=== PATIENT | male | born 1965 | race Asian ===

== ENCOUNTER 2022-07-13 04:26 | Inpatient (IN) | payer MEDICARE, OTHER ==
[~2022-07-13] VITALS: Ht 167.6 cm; Wt 70.0 kg
[2022-07-13] VITALS (15 sets, daily range): BP systolic 55–164; BP diastolic 26–91
[~2022-07-13 04:26] MED LIST: AMLO-258 PO; ATOR10TA PO; GLYB-145 PO
[2022-07-13 05:25] LABS: BASOPHILS % (AUTO) 3.2 % (0.0-2.0); HEMATOCRIT 38.9 % (41-53); HEMOGLOBIN 12.2 g/dL (13.5-17.5); LYMPHOCYTES % (AUTO) 52.7 % (22.0-44.0); MEAN CORPUSCULAR HEMOGLOBIN 35.2 pg (26.0-34.0); MEAN CORPUSCULAR HGB CONC 31.4 G/dL (31.0-37.0); MEAN CORPUSCULAR VOLUME 112 fL (80-100); MONOCYTES # (AUTO) 0.3 K/uL (0.1-1.0); MONOCYTES % (AUTO) 5.4 % (2.0-9.0); NEUTROPHILS % (AUTO) 35.7 % (40.0-70.0); PLATELET COUNT (AUTO) 95 K/uL (150-450); RED BLOOD CELL COUNT(AUTO) 3.46 MIL/uL (4.50-5.90); RED CELL DISTRIBUTION WIDTH 15.6 % (11.5-14.5)
[2022-07-13 05:35] LABS: INR 1.2 (0.9-1.1); PROTHROMBIN TIME 12.9 SEC (9.4-11.6)
[2022-07-13 05:49] LABS: ALANINE AMINOTRANSFERASE 14 U/L (12-78); ALBUMIN 3.1 g/dL (3.4-5.0); ALKALINE PHOSPHATASE 158 U/L (46-116); ANION GAP 17 mmol/L (8-16); ASPARTATE AMINOTRANSFERASE 20 U/L (15-37); BILIRUBIN,TOTAL 1.3 mg/dL (0.1-1.0); CARBON DIOXIDE 23 mmol/L (22-29); CHLORIDE 103 mmol/L (98-107); CREATINE KINASE, TOTAL ONLY 90 U/L (39-308); CREATININE 8.28 mg/dL (0.60-1.30); GLUCOSE,RANDOM 148 mg/dL (70-110); POTASSIUM 5.8 mmol/L (3.5-5.1); SODIUM SERUM 143 mmol/L (136-145); TOTAL PROTEIN, SERUM 7.8 g/dL (6.4-8.2); UREA NITROGEN, BLOOD 63 mg/dL (7-18)
[2022-07-13 05:55] LABS: B-TYPE NATRIURETIC PEPTIDE > 5000 pg/mL (0-100); GLOMERULAR FILTR. RATE CALC 7 mL/min (>60)
[2022-07-13 05:57] LABS: CALCIUM, TOTAL 18.7 mg/dL (8.8-10.5)
[2022-07-13] MEDS ORDERED: PROPOFOL 1000 MG/ISO-OSM 100 ML ONE (06:00)
[2022-07-13] MEDS ORDERED: PROPOFOL 1000 MG/ISO-OSM 100 ML IV PRN ×2 (06:15→13:00)
[2022-07-13] MEDS ORDERED: DOPamine 400MG/D5W[STANDARD] 250 ML IV PRN ×2 (06:45→13:00)
[2022-07-13 07:28] LABS: COVID AG,FIA SOURCE NASOPHARYNGEAL
[2022-07-13 07:47] LABS: CALCIUM, TOTAL 10.5 mg/dL (8.8-10.5); POTASSIUM 5.6 mmol/L (3.5-5.1)
[2022-07-13 07:49] LABS: ABG BASE EXCESS -6.5 mmol/L (-2.0-3.0); ABG CARBOXYHEMOGLOBIN 0.5 % (0.0-1.5); ABG HCO3 19.1 mmol/L (22.0-26.0); ABG OXYGEN CONTENT 16.9 mL/dL (15.0-23.0); ABG OXYGEN SATURATION 95.3 % (95.0-98.0); ABG OXYHEMOGLOBIN 94.8 % (94.0-100.0); ABG PCO2 47 mmHg (35-45); ABG PH 7.261 (7.35-7.450); ABG TOTAL HEMOGLOBIN 12.6 G/dL (12.0-18.0); PO2, ARTERIAL BG 93.7 mmHg (84.0-92.0); SOURCE, BLOOD GAS ARTERIAL; TEMPERATURE, FAHRENHEIT, BG 96.5 FAHREN (96.0-98.6)
[2022-07-13 07:50] LABS: ABG A-A DIFF O2 575.9 mmHg (10-20.0); O2 DEVICE,BLOOD GAS VENTILATOR (ROOM AIR); SITE, BLOOD GAS LFT RADIAL; SPONTANEOUS VT, BG 420 ml; VT, ABG 375 ml
[2022-07-13 07:53] LABS: ALBUMIN 3.4 g/dL (3.4-5.0); BILIRUBIN,TOTAL 1.7 mg/dL (0.1-1.0); TOTAL PROTEIN, SERUM 8.7 g/dL (6.4-8.2)
[2022-07-13] MEDS ORDERED: ACETAMINOPHEN 325 MG TABLET PO PRN (10:00)
[2022-07-13] MEDS ORDERED: LIDOCAINE/PF 2% 5 ML VIAL IM ONE (12:00)
[2022-07-13] MEDS ORDERED: HEPARIN SODIUM,PORCINE 1,000 UNITS/ML 10 ML VIAL IVP ONE (12:00)
[2022-07-13 13:01] LABS: ABG CARBOXYHEMOGLOBIN 0.9 % (0.0-1.5); ABG HCO3 23.7 mmol/L (22.0-26.0); ABG METHEMOGLOBIN 0.3 % (0.0-1.5); ABG OXYGEN CONTENT 16.4 mL/dL (15.0-23.0); ABG OXYGEN SATURATION 98.3 % (95.0-98.0); ABG OXYHEMOGLOBIN 97.1 % (94.0-100.0); ABG PCO2 42 mmHg (35-45); ABG PH 7.375 (7.35-7.450); ABG TOTAL HEMOGLOBIN 11.8 G/dL (12.0-18.0); PO2, ARTERIAL BG 140.2 mmHg (84.0-92.0); SOURCE, BLOOD GAS ARTERIAL; TEMPERATURE, FAHRENHEIT, BG 98.6 FAHREN (96.0-98.6)
[2022-07-13 13:02] LABS: O2 DEVICE,BLOOD GAS VENTILATOR (ROOM AIR); SITE, BLOOD GAS LFT RADIAL; SPONTANEOUS VT, BG 580 ml; VT, ABG 400 ml
[2022-07-13 13:03] LABS: PEEP,BG 5 cm H2O
[2022-07-13] MEDS ORDERED: VANCOMYCIN 1GM/WATER(PEG/NADA) 200 ML IV PRN (13:15)
[2022-07-13] MEDS ORDERED: VANCOMYCIN HCL 1.25 GM in DEXTROSE 5%-WATER 250 ML IV ONE (14:00)
[2022-07-13] MEDS ORDERED: FentaNYL CIT 1000MCG/0.9% NACL 100 ML IV PRN (14:30)
[2022-07-13] MEDS ORDERED: HEPARIN SODIUM 25000 UNITS/D5W 250 ML IV PRN (14:45)
[2022-07-13] MEDS ORDERED: HEPARIN SODIUM,PORCINE 5,000 UNITS/ML VIAL IVP PRN ×2 (14:45)
[2022-07-13 15:01] LABS: EOSINOPHILS % (AUTO) 2.3 % (1.0-6.0); HEMATOCRIT 34.7 % (41-53); HEMOGLOBIN 11.6 g/dL (13.5-17.5); LYMPHOCYTES # (AUTO) 0.3 K/uL (1.0-4.8); LYMPHOCYTES % (AUTO) 7.5 % (22.0-44.0); MEAN CORPUSCULAR HEMOGLOBIN 35.4 pg (26.0-34.0); MEAN CORPUSCULAR HGB CONC 33.3 G/dL (31.0-37.0); MEAN CORPUSCULAR VOLUME 106 fL (80-100); MONOCYTES # (AUTO) 0.1 K/uL (0.1-1.0); NEUTROPHILS # (AUTO) 3.7 K/uL (1.8-7.7); PLATELET COUNT (AUTO) 130 K/uL (150-450); RED BLOOD CELL COUNT(AUTO) 3.27 MIL/uL (4.50-5.90); RED CELL DISTRIBUTION WIDTH 14.5 % (11.5-14.5)
[2022-07-13 15:07] LABS: NEUTROPHILS % (AUTO) 86.2 % (40.0-70.0)
[2022-07-13 15:14] LABS: INR 1.3 (0.9-1.1); PROTHROMBIN TIME 13.3 SEC (9.4-11.6)
[2022-07-13] MEDS: PIPERACILLIN SODIUM/TAZOBACTAM 2.25 GM in DEXTROSE 5%-WATER 50 ML IV SCH (15:22)
[2022-07-13] MEDS ORDERED: SODIUM CHLORIDE 0.9% 250 ML IV ONE (15:31)
[2022-07-13] MEDS ORDERED: ASPIRIN 81 MG DR TABLET NG SCH (16:00)
[2022-07-13] MEDS ORDERED: HEPARIN SODIUM,PORCINE 5,000 UNITS/ML VIAL SQ SCH (16:00)
[2022-07-13 16:16] LABS: ABG BASE EXCESS -0.2 mmol/L (-2.0-3.0); ABG CARBOXYHEMOGLOBIN 0.6 % (0.0-1.5); ABG HCO3 24.4 mmol/L (22.0-26.0); ABG METHEMOGLOBIN 0.3 % (0.0-1.5); ABG OXYGEN CONTENT 16.3 mL/dL (15.0-23.0); ABG OXYGEN SATURATION 98.1 % (95.0-98.0); ABG OXYHEMOGLOBIN 97.2 % (94.0-100.0); ABG PCO2 40 mmHg (35-45); ABG TOTAL HEMOGLOBIN 11.8 G/dL (12.0-18.0); PO2, ARTERIAL BG 125.4 mmHg (84.0-92.0); SITE, BLOOD GAS LFT RADIAL; SOURCE, BLOOD GAS ARTERIAL; TEMPERATURE, FAHRENHEIT, BG 97.6 FAHREN (96.0-98.6)
[2022-07-13 16:17] LABS: ABG A-A DIFF O2 332.4 mmHg (10-20.0); O2 DEVICE,BLOOD GAS VENTILATOR (ROOM AIR); PEEP,BG 5 cm H2O; SPONTANEOUS VT, BG 500 ml; VT, ABG 400 ml
[2022-07-13] MEDS ORDERED: DOPamine HCL/D5W 400 MG/250 ML IV BAG IV ONE (16:28)
[2022-07-13] MEDS ORDERED: SODIUM BICARBONATE [ADULT] 8.4% 50 MEQ/50 ML SYRINGE IVP ONE (16:28)
[2022-07-13] MEDS ORDERED: 0.9% SODIUM CHLORIDE 1,000 ML BAG IV ONE (16:28)
[2022-07-13] MEDS ORDERED: EPINEPHrine 1:10,000 [1 MG/10 ML] SYRINGE IVP ONE (16:28)
[2022-07-13] MEDS ORDERED: CALCIUM CHLORIDE 100 MG/ML 10 ML SYRINGE IVP ONE (16:28)
[2022-07-13] MEDS ORDERED: 0.9% SODIUM CHLORIDE 10 ML SYRINGE IVP ONE (16:28)
[2022-07-13] MEDS ORDERED: NOREPINEPHRINE 8 MG/D5%-WATER 250 ML IV ONE (17:37)
[2022-07-13] MEDS ORDERED: PHENYLEPHRINE 200 MG/D5%-WATER 250 ML IV PRN (17:45)
[2022-07-13] MEDS: NOREPINEPHRINE 8 MG/D5%-WATER 250 ML IV PRN (17:45)
[2022-07-13 18:21] LABS: CALCIUM, TOTAL 9.6 mg/dL (8.8-10.5); CREATININE 5.96 mg/dL (0.60-1.30); POTASSIUM 4.5 mmol/L (3.5-5.1)
[2022-07-13 18:53] LABS: ABG BASE EXCESS -7.2 mmol/L (-2.0-3.0); ABG CARBOXYHEMOGLOBIN 0.7 % (0.0-1.5); ABG HCO3 18.2 mmol/L (22.0-26.0); ABG METHEMOGLOBIN 0.3 % (0.0-1.5); ABG OXYGEN CONTENT 14.9 mL/dL (15.0-23.0); ABG OXYHEMOGLOBIN 80.7 % (94.0-100.0); ABG PCO2 49 mmHg (35-45); ABG PH 7.237 (7.35-7.450); ABG TOTAL HEMOGLOBIN 13.1 G/dL (12.0-18.0); PO2, ARTERIAL BG 55.7 mmHg (84.0-92.0); SOURCE, BLOOD GAS ARTERIAL; TEMPERATURE, FAHRENHEIT, BG 97.5 FAHREN (96.0-98.6)
[2022-07-13 19:09] LABS: ABG OXYGEN SATURATION 81.5 % (95.0-98.0); SITE, BLOOD GAS LFT RADIAL
[2022-07-13 19:10] LABS: O2 DEVICE,BLOOD GAS VENT (ROOM AIR); PEEP,BG 5 cm H2O; VT, ABG 400 ml
[2022-07-13] MEDS ORDERED: SODIUM BICARBONATE 50 MEQ/50 ML VIAL ONE (19:24)
[2022-07-13] MEDS ORDERED: IOHEXOL 300 MG/ML 100 ML VIAL ONE ×2 (19:24→21:14)
[2022-07-13] MEDS ORDERED: LIDOCAINE/PF 1% 30 ML VIAL ONE (19:24)
[2022-07-13] MEDS ORDERED: HEPARIN SODIUM 1000 UNITS/NS 1,000 ML ONE (19:24)
[2022-07-13] MEDS ORDERED: ATROPINE SULFATE 0.1 MG/ML 10 ML SYRINGE IVP ONE (20:27)
[2022-07-13] MEDS ORDERED: HEPARIN SODIUM 1000 UNITS/NS 1,000 ML IARTER ONE (20:30)
[2022-07-13] MEDS ORDERED: IOHEXOL 300 MG/ML 100 ML VIAL IARTER ONE ×2 (20:30→21:00)
[2022-07-13] MEDS ORDERED: SODIUM CHLORIDE 0.9% 500 ML IV ONE (20:30)
[2022-07-13] MEDS ORDERED: LIDOCAINE 1% 30 ML/SOD BICARB 8.4% 4 ML SQ ONE (20:30)
[2022-07-13] MEDS ORDERED: FAMOTIDINE 20 MG TABLET PO SCH (21:00)
[2022-07-13] MEDS ORDERED: DOCUSATE SODIUM 100 MG CAPSULE PO SCH (21:00)
[2022-07-13] MEDS ORDERED: DOPamine 400MG/D5W[STANDARD] 250 ML IV ONE (22:29)
[2022-07-13] MEDS ORDERED: HEPARIN SODIUM IV ONE (22:30)
[2022-07-13] MEDS ORDERED: HEPARIN SODIUM IV PRN (22:30)
[2022-07-13] MEDS ORDERED: WATER IV ONE (22:30)
[2022-07-13] MEDS ORDERED: DEXTROSE 5% IV PRN (22:30)
[2022-07-13] MEDS ORDERED: WATER IV PRN (22:30)
[2022-07-13] MEDS ORDERED: DEXTROSE 5% IV ONE (22:30)
[2022-07-13 23:53] LABS: ABG BASE EXCESS -7.5 mmol/L (-2.0-3.0); ABG CARBOXYHEMOGLOBIN 0.6 % (0.0-1.5); ABG HCO3 19.1 mmol/L (22.0-26.0); ABG METHEMOGLOBIN 0.3 % (0.0-1.5); ABG OXYGEN CONTENT 15.3 mL/dL (15.0-23.0); ABG OXYGEN SATURATION 95.8 % (95.0-98.0); ABG OXYHEMOGLOBIN 94.9 % (94.0-100.0); ABG PCO2 33 mmHg (35-45); ABG PH 7.359 (7.35-7.450); ABG TOTAL HEMOGLOBIN 11.4 G/dL (12.0-18.0); PO2, ARTERIAL BG 93.7 mmHg (84.0-92.0); SITE, BLOOD GAS ALINE; SOURCE, BLOOD GAS ARTERIAL; TEMPERATURE, FAHRENHEIT, BG 99.1 FAHREN (96.0-98.6)
[2022-07-13 23:54] LABS: O2 DEVICE,BLOOD GAS VENT (ROOM AIR); PEEP,BG 12 cm H2O; VT, ABG 450 ml
[2022-07-14] VITALS (7 sets, daily range): BP systolic 55–151; BP diastolic 41–78
[2022-07-14 00:09] LABS: BASOPHILS % (AUTO) 0.9 % (0.0-2.0); HEMATOCRIT 32.7 % (41-53); HEMOGLOBIN 10.8 g/dL (13.5-17.5); LYMPHOCYTES # (AUTO) 0.2 K/uL (1.0-4.8); LYMPHOCYTES % (AUTO) 10.3 % (22.0-44.0); MEAN CORPUSCULAR HEMOGLOBIN 35.3 pg (26.0-34.0); MEAN CORPUSCULAR HGB CONC 32.9 G/dL (31.0-37.0); MEAN CORPUSCULAR VOLUME 107 fL (80-100); MONOCYTES # (AUTO) 0.1 K/uL (0.1-1.0); MONOCYTES % (AUTO) 4.6 % (2.0-9.0); NEUTROPHILS # (AUTO) 1.6 K/uL (1.8-7.7); NEUTROPHILS % (AUTO) 79.2 % (40.0-70.0); PLATELET COUNT (AUTO) 123 K/uL (150-450); RED BLOOD CELL COUNT(AUTO) 3.05 MIL/uL (4.50-5.90); RED CELL DISTRIBUTION WIDTH 15.2 % (11.5-14.5)
[2022-07-14 00:16] LABS: ANION GAP 14 mmol/L (8-16); CALCIUM, TOTAL 8.6 mg/dL (8.8-10.5); CARBON DIOXIDE 24 mmol/L (22-29); CHLORIDE 97 mmol/L (98-107); CREATININE 6.43 mg/dL (0.60-1.30); GLOMERULAR FILTR. RATE CALC 9 mL/min (>60); GLUCOSE,RANDOM 51 mg/dL (70-110); POTASSIUM 3.9 mmol/L (3.5-5.1); SODIUM SERUM 135 mmol/L (136-145); UREA NITROGEN, BLOOD 50 mg/dL (7-18)
[2022-07-14 00:21] LABS: LACTATE DEHYDROGENASE 510 U/L (85-227)
[2022-07-14 00:36] LABS: B-TYPE NATRIURETIC PEPTIDE > 5000 pg/mL (0-100)
[2022-07-14] MEDS ORDERED: DEXTROSE 5%-WATER 250 ML IV ONE (01:09)
[2022-07-14] MEDS ORDERED: SODIUM CHLORIDE 0.9% 250 ML IV ONE (01:17)
[2022-07-14] MEDS: PIPERACILLIN SODIUM/TAZOBACTAM 2.25 GM in DEXTROSE 5%-WATER 50 ML IV SCH (01:21)
[2022-07-14] MEDS ORDERED: DEXTROSE 50%-WATER 25 GM/50 ML SYRINGE IVP ONE ×2 (01:56→08:19)
[2022-07-14] MEDS: NOREPINEPHRINE 8 MG/D5%-WATER 250 ML IV PRN (02:25)
[2022-07-14 02:28] LABS: HEMATOCRIT 31.1 % (41-53); HEMOGLOBIN 10.1 g/dL (13.5-17.5); MEAN CORPUSCULAR HEMOGLOBIN 35.8 pg (26.0-34.0); MEAN CORPUSCULAR HGB CONC 32.4 G/dL (31.0-37.0); MEAN CORPUSCULAR VOLUME 111 fL (80-100); PLATELET COUNT (AUTO) 102 K/uL (150-450)
[2022-07-14 02:31] LABS: CALCIUM, TOTAL 10.1 mg/dL (8.8-10.5); CREATININE 6.82 mg/dL (0.60-1.30); POTASSIUM 3.4 mmol/L (3.5-5.1)
[2022-07-14] MEDS: EPINEPHrine 2 MG in DEXTROSE 5%-WATER 248 ML IV PRN ×2 (02:31→04:04)
[2022-07-14 02:37] LABS: ALBUMIN 2.4 g/dL (3.4-5.0); BILIRUBIN,TOTAL 3.4 mg/dL (0.1-1.0); TOTAL PROTEIN, SERUM 6.3 g/dL (6.4-8.2)
[2022-07-14 03:16] LABS: INR 1.8 (0.9-1.1); PROTHROMBIN TIME 18.4 SEC (9.4-11.6)
[2022-07-14 03:17] LABS: BUFFY COAT SMEAR PREP NOT DONE (NOT DONE)
[2022-07-14 03:21] LABS: BAND NEUTROPHILS % (MANUAL) 21 % (0-5); EOSINOPHILS % (MANUAL) 1 % (1-6); LYMPHOCYTES % (MANUAL) 23 % (22-44); METAMYELOCYTES % 4 % (0-0); MONOCYTES % (MANUAL) 3 % (2-9); SEGMENTED NEUTROPHILS % 48 % (40-70)
[2022-07-14 05:31] LABS: GLUCOSE,POINT OF CARE 162 MG/DL (70-110)
[2022-07-14] MEDS ORDERED: CALCIUM CHLORIDE 100 MG/ML 10 ML SYRINGE IVP ONE (08:19)
[2022-07-14] MEDS ORDERED: EPINEPHrine 1:10,000 [1 MG/10 ML] SYRINGE IVP ONE (08:19)
[2022-07-14] MEDS ORDERED: ATROPINE SULFATE 0.1 MG/ML 10 ML SYRINGE IVP ONE (08:19)
[2022-07-14] MEDS ORDERED: VANCOMYCIN HCL 500 MG in DEXTROSE 5%-WATER 100 ML IV ONE (16:00)
== END 2022-07-14 08:20 | DRG 216 ==
LOC: EMS 04:26 → ICU 07:22
PROVIDERS: ADMIT Internal Medicine; ATTEND Internal Medicine
PROC: 02HV33Z Insertion of Infusion Device into Superior Vena Cava, Percutaneous Approach (ICD-10-PCS; principal; 2022-07-13)
PROC: 5A12012 Performance of Cardiac Output, Single, Manual (ICD-10-PCS; 2022-07-13)
PROC: 02HA3RJ Insertion of Short-term External Heart Assist System into Heart, Intraoperative, Percutaneous Approach (ICD-10-PCS; 2022-07-14)
PROC: 5A0221D Assistance with Cardiac Output using Impeller Pump, Continuous (ICD-10-PCS; 2022-07-14)
PROC: 4A023N8 Measurement of Cardiac Sampling and Pressure, Bilateral, Percutaneous Approach (ICD-10-PCS; 2022-07-14)
PROC: B2111ZZ Fluoroscopy of Multiple Coronary Arteries using Low Osmolar Contrast (ICD-10-PCS; 2022-07-14)
PROC: B2131ZZ Fluoroscopy of Multiple Coronary Artery Bypass Grafts using Low Osmolar Contrast (ICD-10-PCS; 2022-07-14)
PROC: B2181ZZ Fluoroscopy of Left Internal Mammary Bypass Graft using Low Osmolar Contrast (ICD-10-PCS; 2022-07-14)
PROC: B41F1ZZ Fluoroscopy of Right Lower Extremity Arteries using Low Osmolar Contrast (ICD-10-PCS; 2022-07-14)
PROC: 03HY32Z Insertion of Monitoring Device into Upper Artery, Percutaneous Approach (ICD-10-PCS; 2022-07-14)
PROC: 4A133B1 Monitoring of Arterial Pressure, Peripheral, Percutaneous Approach (ICD-10-PCS; 2022-07-14)
PROC: 4A133J1 Monitoring of Arterial Pulse, Peripheral, Percutaneous Approach (ICD-10-PCS; 2022-07-14)
DX: I21.4 Non-ST elevation (NSTEMI) myocardial infarction (principal); J96.00 Acute respiratory failure, unspecified whether with hypoxia or hypercapnia; N18.6 End stage renal disease; D68.9 Coagulation defect, unspecified; I13.2 Hypertensive heart and chronic kidney disease with heart failure and with stage 5 chronic kidney disease, or end stage renal disease; Z99.11 Dependence on respirator [ventilator] status; I46.9 Cardiac arrest, cause unspecified; G83.9 Paralytic syndrome, unspecified; E87.5 Hyperkalemia; I25.10 Atherosclerotic heart disease of native coronary artery without angina pectoris; D63.8 Anemia in other chronic diseases classified elsewhere; E11.22 Type 2 diabetes mellitus with diabetic chronic kidney disease; E11.319 Type 2 diabetes mellitus with unspecified diabetic retinopathy without macular edema; E11.40 Type 2 diabetes mellitus with diabetic neuropathy, unspecified; E78.00 Pure hypercholesterolemia, unspecified; E83.52 Hypercalcemia; I50.9 Heart failure, unspecified; I27.20 Pulmonary hypertension, unspecified; Z20.822 Contact with and (suspected) exposure to COVID-19; R57.0 Cardiogenic shock; Z66 Do not resuscitate; Z79.4 Long term (current) use of insulin; Z95.1 Presence of aortocoronary bypass graft; Z99.2 Dependence on renal dialysis; Z79.899 Other long term (current) drug therapy; Z98.42 Cataract extraction status, left eye
CPT/HCPCS: 31500; 33990; 36600; 70450; 71045; 80048; 80053; 82550; 82805; 82962; 83615; 83880; 84484; 85025; 85610; 85730; 87040; 87081; 87340; 92950; 93005; 93306; 93460; 94002; 99291; G0378; J0171; J0461; J1265; J1644; J2370; J2543; J2704; J3370; J3490; J7030; J7050; J7060; Q9967; 36415-L1; 36415-TC